=== PATIENT | male | born 1985 | race Asian ===

== ENCOUNTER 2024-10-10 16:29 | Emergency (ER) | payer SELFPAY ==
[~2024-10-10] VITALS: Ht 180.3 cm; Wt 99.8 kg
[2024-10-10 16:40] VITALS: BP 145/93; O2SAT 99
== END 2024-10-10 17:24 | disposition home or self-care (01) ==
LOC: ER 16:36
DX: S06.0X0A Concussion without loss of consciousness, initial encounter (principal); R11.0 Nausea; E88.810 Metabolic syndrome; V43.52XA Car driver injured in collision with other type car in traffic accident, initial encounter; Y93.89 Activity, other specified; Y92.488 Other paved roadways as the place of occurrence of the external cause; Y99.8 Other external cause status
CPT/HCPCS: A4606; A4663